=== PATIENT | male | born 1945 | race African-American/Black ===

== ENCOUNTER 2018-08-10 09:14 | Emergency (ER) | payer MEDICARE, BC ==
[~2018-08-10] VITALS: Ht 188 cm; Wt 91.0 kg
[~2018-08-10 09:14] MED LIST: AMLO10TA80 PO; BENA20TA10 PO; LEVO25TA7 PO; LOVA40TA73 PO; MIRT15TA6 PO
[2018-08-10] MEDS ORDERED: FAMOTIDINE 20MG TABLET PO ONE (10:15)
[2018-08-10 10:54] LABS: BASOPHILS % 0.8 % (0.0-2.0); EOSINOPHILS % 0.4 % (0.0-5.0); HEMATOCRIT. 42.2 % (42.0-52.0); HEMOGLOBIN. 14.3 g/dL (14.0-18.0); LYMPHOCYTES % 20.4 % (20.0-50.0); MEAN CORPUSCULAR HEMOGLOBIN 30.7 pg (28.0-32.0); MEAN CORPUSCULAR VOLUME 90.6 fL (80.0-94.0); MEAN PLATELET VOLUME 9.1 fl (7.4-10.4); MONOCYTES % 9.7 % (2.0-8.0); NEUTROPHILS % 68.7 % (40.0-76.0); PLATELET 196 x1000/uL (130-400); RED BLOOD CELL COUNT 4.65 mill/uL (4.7-6.1)
[2018-08-10 10:56] LABS: CHLORIDE 112 mEq/L (98-107)
[2018-08-10] MEDS ORDERED: ACETAMINOPHEN WITH CODEINE 300/30MG TABLET PO ONE (11:15)
[2018-08-10] MEDS ORDERED: CLONIDINE 0.1MG TABLET PO ONE (11:15)
[2018-08-10] MEDS ORDERED: ONDANSETRON HCL 4MG/2ML INJ IV ONE (11:15)
[2018-08-10 13:06] VITALS: BP 160/89
== END 2018-08-10 13:10 | disposition home or self-care (01) ==
LOC: ER 09:14
DX: I10 Essential (primary) hypertension (principal); R51 Headache
CPT/HCPCS: 36415; 70450; 80053; 85025; 93005; 96374; 99285; J2405